=== PATIENT | male | born 1965 | race Caucasian/White ===

== ENCOUNTER 2022-10-04 19:04 | Emergency (ER) | payer OTHER, BC ==
[2022-10-04 19:34] VITALS: BMI 32.1
[2022-10-04] MEDS ORDERED: LABETALOL HCL 200 MG TABLET (FP) PO ONE (19:49)
[2022-10-04] MEDS ORDERED: SODIUM CHLORIDE 0.9% 500 ML INFUS.BAG IV ONE (19:54)
[2022-10-04] MEDS ORDERED: LORazepam 2 MG/ML SDV VIAL IVPUSH STA (20:28)
[2022-10-04 20:37] LABS: BASO % 0.7 % (0-2.0); EOS % 2.3 % (0-4.5); HEMATOCRIT 41.3 % (35.4-49); HEMOGLOBIN 14.2 GM/dL (11.7-16.9); LYMPH % 19.8 % (8-40); MCH 30.7 pg (25.7-33.7); MCHC 34.4 g/dl (32.0-35.9); MEAN CELL VOLUME 89.3 fl (80-96); MEAN PLT VOLUME 7.6 fl (7.5-11.1); MONO % 6.2 % (3.8-10.2); PLATELET COUNT 255 10^3/uL (134-434); RBC 4.62 M/mm3 (4.00-5.60); RDW 14.1 % (11.9-15.9)
[2022-10-04 20:46] LABS: COCAINE, UR NEGATIVE (NEGATIVE); PHENCYCLIDINE,URINE NEGATIVE (NEGATIVE)
[2022-10-04 20:47] LABS: METHADONE, UR NEGATIVE (NEGATIVE); OPIATES, URI NEGATIVE (NEGATIVE); URINE AMPHETAMINES NEGATIVE (NEGATIVE); URINE BARBITURATES NEGATIVE (NEGATIVE); URINE BENZODIAZEPINES NEGATIVE (NEGATIVE)
[2022-10-04 20:49] LABS: CALCIUM 8.9 mg/dL (8.5-10.1)
[2022-10-04 20:50] LABS: ALBUMIN 4.3 g/dl (3.4-5.0); BLOOD UREA NITROGEN 25.4 mg/dL (7-18); MAGNESIUM 2.3 mg/dL (1.8-2.4)
[2022-10-04 20:53] LABS: PHOSPHOROUS 2.4 mg/dL (2.5-4.9)
[2022-10-04 20:54] LABS: BILIRUBIN,TOTAL 0.6 mg/dL (0.2-1); TOT PROT 7.7 g/dl (6.4-8.2)
[2022-10-04 21:56] VITALS: PULSE 88
[2022-10-04 23:47] VITALS: BP 128/71; RESP 20; TEMP 98.8
== END 2022-10-05 03:21 | disposition home or self-care (01) ==
LOC: JER 19:04
PROC: 3E033GC Introduction of Other Therapeutic Substance into Peripheral Vein, Percutaneous Approach (ICD-10-PCS; principal; 2022-10-04)
DX: F12.920 Cannabis use, unspecified with intoxication, uncomplicated (principal)
CPT/HCPCS: 36415; 71045-TC-FY; 80053; 80307; 83735; 84100; 84484; 85025; 93005; 93010; 99285-25